=== PATIENT | female | born 1990 ===

== ENCOUNTER 2021-01-07 17:56 | Inpatient (IN) | payer MEDICAID ==
[~2021-01-07] VITALS: Ht 162.6 cm; Wt 94.6 kg
--- NOTE | ~2021-01-07 | OP ---
PATIENT NAME: KATIUSKA SALMERON MEDICAL RECORD: [id number] :91 LOCATION:[id number] ADMISSION DATE:01/07/21 SURGEON: SYLVAIN BLANCO DO DATE OF OPERATION: 01/07/2021 PREOPERATIVE DIAGNOSIS: A 38 weeks Category 2 nonreassuring heart tracing. POSTOPERATIVE DIAGNOSIS: A 38 weeks Category 2 nonreassuring heart tracing. PRIMARY SURGEON: Sylvain Blanco DO ANESTHESIA: Spinal. PROCEDURE: Primary low transverse via Pfannenstiel incision. FINDINGS: Vigorous male infant delivered at 2055, weight 3201 grams, Apgars 9 and 9, loose body cord, clear amniotic fluid. SPECIMENS: Placenta, cord pH, and cord blood. ESTIMATED BLOOD LOSS: 900 cc. IV FLUIDS: Per anesthesia. URINE OUTPUT: 300 cc clear yellow urine. INFECTION PROPHYLAXIS: 2 grams Ancef. Chlorhexidine prep. COMPLICATIONS: None. The patient presented to L and B for leakage, but noted to have late decelerations on the monitor due to recurrent late despite resuscitation, decision made for . Risks and benefits were explained to the patient. The patient expressed understanding and desired to proceed with delivery. The patient was taken to the OR where spinal anesthesia was administered and found to be adequate. She was prepped and draped in normal sterile fashion in dorsal supine position with a leftward tilt. Pfannenstiel skin incision was made with a scalpel and carried down to the underlying layer of fascia with the Bovie. The fascia was incised in the midline and incision extended laterally with Montez scissors. The inferior aspect of the fascial incision was grasped with Kochers and the rectus muscle dissected off sharply. The superior aspect of fascial incision grasped with Kochers and rectus muscles were dissected off sharply. Rectus muscle in the midline bluntly and peritoneum identified and noted to be free of adherent bowel and bladder and entered bluntly. The peritoneum was stretched with gentle traction. Bladder blade placed. Transverse incision was made on the uterus with scalpel and incision extended with upward and downward gentle traction. The infant's head brought to the incision. 's head delivered without difficulty. Loose body cord noted. Clear amniotic fluid on rupture. A vigorous male infant delivered. Body delivered without difficulty. Mouth and nose were suctioned. Cord was clamped and cut. The handed to waiting pediatric nurse. Placenta removed manually. Uterus exteriorized. A moist laparotomy sponge used to assure complete removal of placental membranes. Hysterotomy reapproximated with 0 OPERATIVE REPORT [id number] KATIUSKA SALMERONl in a running fashion with good hemostasis noted. A small bleeding right lateral edge affixed with [id number] stitch with good hemostasis. Posterior cul-de-sac irrigated with saline and suctioned clear of blood clots and fluid. Hysterotomy reexamined and noted to be hemostatic. Uterus replaced into abdominal cavity. Gutters cleaned with moist laparotomy sponge to remove blood clots and fluid. Muscle was closed in a running fashion with 2-0 Monocryl. The muscle was inspected and no active bleeding noted. Fascia closed in running fashion with 0 Vicryl. Subcutaneous layer irrigated and bleeding vessels cauterized with the Bovie, closed with plain gut and skin closed in a subcuticular fashion with 3-0 Monocryl. Steri-Strips were applied and dressing applied. The patient tolerated the procedure well. Lap, instrument, and needle counts were correct times 2. The patient was awakened and taken to recovery room in stable condition. TRANSINT:[id number] Voice Confirmation ID: [id number] DOCUMENT ID: [id number] SYLVAIN BLANCO DO CC: [id number] DICTATION DATE: 01/11/211899 DIRECTOR OF CONVENTION SERVICES: 01/11/212151 DIS IN 01/09/21 [facility] [address] [place] [address]
[2021-01-07 19:17] LABS: BASOPHILS 0.1 % (0-2); EOSINOPHILS 0.7 % (0-7); HEMATOCRIT 36.7 % (36.0-48.0); HEMOGLOBIN 11.9 g/dL (12-16); IMMATURE GRANULOCYTES 0.7 % (0-5); LYMPHOCYTES 16.4 % (15-50); MCH 26.8 pg (26.0-34.0); MCHC 32.4 g/dL (31.0-37.0); MCV 82.7 fL (80.0-100.0); MEAN PLATELET VOLUME 10.8 fL (7.4-10.4); NEUTROPHIL ABS# 7.43 10x3/uL (1.56-6.13); NEUTROPHILS 76.1 % (40-80); RBC 4.44 10x6/uL (4.00-5.40); RDW 14.1 % (11.5-14.5); WBC 9.8 10x3/uL (4.8-10.8)
[2021-01-07 19:27] LABS: PLATELET COUNT 197 10x3/uL (130-400)
[2021-01-07 19:35] LABS: ALBUMIN 2.6 g/dL (3.4-5.0); ALKALINE PHOSPHATASE 153 U/L (30-120); ALT (SGPT) 16 U/L (10-68); BILIRUBIN - TOTAL 0.33 mg/dL (0.2-1.3); CALC OSMOLALITY 270 mosm/kg (275-300); CALCIUM 8.4 mg/dL (8.5-10.1); CARBON DIOXIDE 17.9 mmol/L (21.0-32.0); CHLORIDE - SERUM 105 mmol/L (98-107); CREATININE - SERUM 0.5 mg/dL (0.6-1.3); GLUCOSE 84 mg/dL (74-106); PROTEIN - SERUM 6.4 g/dL (6.4-8.2); SODIUM 137 mmol/L (136-145); UREA NITROGEN 7 mg/dL (7-18); eGFR NON AFRICAN AMERICAN > 90 mL/min (90-120)
--- NOTE | 2021-01-07 22:15 | NUR ---
BABY 2055
[2021-01-07 22:55] VITALS: BP 111/56
[2021-01-07 23:10] VITALS: BP 109/55
[2021-01-07 23:33] VITALS: BP 115/60
[2021-01-07 23:48] VITALS: BP 101/59
[2021-01-08 00:05] VITALS: BP 108/56
[2021-01-08 00:48] VITALS: BP 97/60
--- NOTE | 2021-01-08 04:30 | NUR ---
VSS, AFEBRILE, RESP EVEN AND UNLABORED, PT REPORTS INCREASED ABD PAIN NOW RATES 8 OUT OF 10 ON NUMERIC PAIN SCALE, PRN MED GIVEN, ICE PACK OVERLAY REFRESHED AND TO LOW TRANSVERSE INCISION, CUP OF ICE WATER PROVIDED WELL, BROWER CATHETER EMPTIED AND RESET TO GRAVITY DRAINAGE-TOTAL 500ML SINCE RECOVERY. PERICARE/BROWER CARE COMPLETED, REPOSITIONED PT TO COMFORT, SR UP X2, BED IN LOW POSIION, C/L IN EASY REACH OF PT. WILL MONITOR.
[2021-01-08 04:38] VITALS: BP 100/54
--- NOTE | 2021-01-08 05:40 | NUR ---
OUTSIDE SALES ENGINEER HERE TO DRAW AM ORDERED LABS, UA SENT WITH TECH.
[2021-01-08 06:00] LABS: BASOPHILS 0.1 % (0-2); EOSINOPHILS 0.8 % (0-7); HEMATOCRIT 30.6 % (36.0-48.0); HEMOGLOBIN 9.9 g/dL (12-16); IMMATURE GRANULOCYTES 0.7 % (0-5); LYMPHOCYTE ABS# 1.84 10x3/uL (1.18-3.74); LYMPHOCYTES 19.1 % (15-50); MCH 26.8 pg (26.0-34.0); MCHC 32.4 g/dL (31.0-37.0); MCV 82.7 fL (80.0-100.0); MEAN PLATELET VOLUME 10.4 fL (7.4-10.4); MONOCYTES 7.1 % (2-11); NEUTROPHIL ABS# 6.94 10x3/uL (1.56-6.13); NEUTROPHILS 72.2 % (40-80); RDW 14.2 % (11.5-14.5); WBC 9.6 10x3/uL (4.8-10.8)
[2021-01-08 06:02] LABS: PLATELET COUNT 142 10x3/uL (130-400)
--- NOTE | 2021-01-08 06:25 | NUR ---
DR QUILES PHONED WITH AM H&H RESULTS, ORDERS RECEIVED, NOTED, AND VREIFIED VIA TORB.
[2021-01-08 06:37] LABS: BILIRUBIN NEGATIVE (NEGATIVE); KETONE NEGATIVE (NEGATIVE); NITRITE NEGATIVE (NEGATIVE); UROBILINOGEN NORMAL mg/dL (< 2)
[2021-01-08 08:00] VITALS: BP 146/60
--- NOTE | 2021-01-08 08:00 | NUR ---
PATIENT ASSESSMENT COMPLETED AT BEDSIDE. VSS. PATIENT COMPLAINS OF PAIN 12/24. LR INFUSING IN LEFT ARM PIV. RIGHT ARM PIV SALINED LOCKED. FUNDUS FIRM AND MIDLINE AT UMBILICUS. BLEEDING LIGHT TO MODERATE. SMALL CLOT EXPRESSED. INCISION COVERED WITH DRESSING. CLEAN DRY AND INTACT. SCD IN PLACE. SKIN ASSESSED, WNL. BROWER PRESENT DRAINING CLEAR YELLOW URINE TO GRAVITY. SIDE RAILS UP X 2, BED IN LOW POSITION, CALL LIGHT WITHIN REACH.
--- NOTE | 2021-01-08 11:15 | NUR ---
BROWER REMOVED 1300 ML OF URINE IN BAG. PATIENT TOLERATED WELL.
--- NOTE | 2021-01-08 11:42 | NUR ---
PATIENT AMBULATED TO RESTROOM WITH MINIMAL ASSISTANCE FROM RN. PATIENT UNABLE TO VOID AT THIS TIME. INSTRUCTED TO VOID IN URINE HAT AND INFORM RN. PERICARE PERFORMED. PATIENT SALINED LOCKED. ABDOMINAL BINDER PLACED. PATIENT DENIES NEEDS AT THIS TIME. LINEN CHANGED. SIDE RAILS UP X2, BED IN LOW POSITION, CALL LIGHT WITHIN REACH.
[2021-01-08 11:55] LABS: BASOPHILS 0.1 % (0-2); EOSINOPHILS 0.7 % (0-7); HEMATOCRIT 33.2 % (36.0-48.0); HEMOGLOBIN 10.6 g/dL (12-16); IMMATURE GRANULOCYTES 0.6 % (0-5); LYMPHOCYTE ABS# 1.91 10x3/uL (1.18-3.74); LYMPHOCYTES 20.4 % (15-50); MCH 26.4 pg (26.0-34.0); MCHC 31.9 g/dL (31.0-37.0); MCV 82.6 fL (80.0-100.0); MEAN PLATELET VOLUME 9.8 fL (7.4-10.4); MONOCYTES 7.5 % (2-11); NEUTROPHIL ABS# 6.61 10x3/uL (1.56-6.13); NEUTROPHILS 70.7 % (40-80); PLATELET COUNT 152 10x3/uL (130-400); RBC 4.02 10x6/uL (4.00-5.40); RDW 14.1 % (11.5-14.5); WBC 9.4 10x3/uL (4.8-10.8)
[2021-01-08 13:16] VITALS: BP 92/49
--- NOTE | 2021-01-08 13:18 | NUR ---
RESPRIATORY AT BEDSIDE TO GIVE UPDRAFT SECONDARY TO PATIENT'S HISTORY OF ASTHMA. PATIENT POST BROWER VOID OF 300 ML OF CLEAR URINE NOTED.
[2021-01-08 19:38] VITALS: BP 102/62
--- NOTE | 2021-01-08 19:38 | NUR ---
PM ASSESSMENT COMPLETED, VSS, AFEBRILE, AMBULATORY IN ROOM. C/O PAIN AND PRN MED GIVEN PER PT REQUEST WITH SIP WATER. NAD NOTED. WILL MONITOR.
--- NOTE | 2021-01-08 20:15 | NUR ---
PT RESTING WITH EYES CLOSED, RESP EVEN AND UNLABORED, NAD NOTED. C/L IN EASY REACH. WILL MONITOR.
--- NOTE | 2021-01-08 21:36 | NUR ---
ROUNDS COMPLETED, NAD NOTED. WILL MONITOR.
--- NOTE | 2021-01-08 23:30 | NUR ---
ROUNDS COMPLETED, NAD NOTED. RESP EVEN AND UNLABORED. C/L IN EASY REACH.
--- NOTE | 2021-01-09 00:24 | NUR ---
ROUNDS COMPLETED, VSS, AFEBRILE, PRN PAIN MED GIVEN WELL 1 UNIT RHOGRAM IM RIGHT THIGH BLEED SCREEN NEGATIVE. C/L IN EASY REACH OF PT, CUP OF ICE WATER PROVIDED PER REQUEST.
[2021-01-09 00:30] VITALS: BP 91/57
--- NOTE | 2021-01-09 07:26 | NUR ---
THIS RN TO ROOM FOR PT CHECK. PT LYING IN BED ON LEFT SIDE, ALERTS THIS RN ENTERS ROOM. DENIES PAIN OR ANY NEEDS. INFANT RESTING IN [place] AT BEDSIDE. PT INSTRUCTED SHE MAY CONTINUE TO REST, AND THIS RN WILL RETURN TO COMPLETE FULL SHIFT ASSESSMENT AFTER BREAKFAST. PT VERBALIZES UNDERSTANDING, LIES BACK DOWN ON LEFT SIDE TO REST. SRUx2, CL IN REACH.
--- NOTE | 2021-01-09 08:30 | NUR ---
PT CHECK BY ALEJANDRA FARFAN, REPORTS PT IS AAOx3 AND DENIES NEEDS. SRUx2, CL IN REACH.
[2021-01-09 10:21] VITALS: BP 114/64
--- NOTE | 2021-01-09 10:21 | NUR ---
THIS RN TO ROOM FOR COMPLETE SHIFT ASSESSMENT. PT RATES PAIN 7/10 AT THIS TIME, REQUESTING TO TRY IBUPROFEN FIRST BECAUSE SHE DOESN'T WANT TO TAKE NARCOTICS IF NOT NECESSARY. VSS. SHIFT ASSESSMENT COMPLETE. LT ABD INCISION IS C/D WITH STERISTRIPS INTACT. PT DENIES HEAVY LOCHIA OR CLOTS DURING NIGHT, STATES IT HAS BEEN LIGHT. INSTRUCTED ON S/S TO REPORT. UNDERSTANDING VERBALIZED. PT DENIES NAUSEA, STATES HAS BEEN PASSING GAS. MILD GENERALIZED EDEMA NOTED, NON-PITTING. POC DISCUSSED, PT STATES SHE HOPES TO D/C TO HOME TODAY. WILL ADMIN SCHEDULED MEDS AND IBUPROFEN REQUESTED, SEE EMAR FOR DOC.
--- NOTE | 2021-01-09 10:30 | NUR ---
LEFT WRIST PIV REMOVED WITHOUT INCIDENT PER PT REQUEST AND ORDER FOR D/C TO HOME.
--- NOTE | 2021-01-09 10:34 | NUR ---
GAS X AND MOTRIN ADMIN, PT DENIES BEING A SMOKER OR NEEDING A NICOTINE PATCH. SEE EMAR.
--- NOTE | 2021-01-09 12:05 | NUR ---
THIS RN TO ROOM FOR PT CHECK. PT SITTING UP EATING LUNCH, DENIES NEEDS, STATES SHE IS WAITING TO SEE IF INFANT WILL BE DISCHARGED TO HOME. MOTHER AT BEDSIDE. SRUx2, CL IN REACH.
--- NOTE | 2021-01-09 13:01 | NUR ---
PT RATING PAIN 7/10, REQUESTING PERCOCET. ADMIN ORDERED, SEE EMAR FOR DOC. FRESH ICE WATER GIVEN. PT DRESSED IN OWN CLOTHES, AWAITING DISCHARGE. SRUx2, CL IN REACH.
--- NOTE | 2021-01-09 14:25 | NUR ---
THIS RN TO ROOM FOR PT CHECK, UPDATED WORKING ON DISCHARGE. DENIES NEEDS. SRUx2, CL IN REACH.
[2021-01-09] MEDS ORDERED: IBUPROFEN800 MG PO (15:46)
[2021-01-09] MEDS ORDERED: PERCOCET 5-3251 TAB PO (15:46)
--- NOTE | 2021-01-09 16:00 | NUR ---
D/C TEACHING COMPLETED AND PRESCRIPTION GIVEN PROVIDED BY DR QUILES WITH INSTRUCTIONS ON MEDS. PT VERBALIZES UNDERSTANDING AND DENIES QUESTIONS, SIGNS CHART COPIES. PT COPIES PROVIDED.
--- NOTE | 2021-01-09 16:05 | NUR ---
PT OFF UNIT VIA W/C WITH TO PRIVATE VEHICLE, PT'S MOTHER TO DRIVE HER HOME.
[2021-01-10 07:15] LABS: RAPID PLASMA REAGIN Non Reactive (Non Reactive)
[2021-01-10 10:12] LABS: HEPATITIS C ANTIBODY 3.6 S/CO RAT (0.0-0.9)
== END 2021-01-09 16:05 | disposition home or self-care (01) | DRG 788 ==
LOC: D.LDO 17:56 → D.LD 19:07
PROVIDERS: ADMIT Obstetrics & Gynecology; ATTEND Obstetrics & Gynecology
PROC: 3E033VJ Introduction of Other Hormone into Peripheral Vein, Percutaneous Approach (ICD-10-PCS; 2021-01-07)
PROC: 10D00Z1 Extraction of Products of Conception, Low, Open Approach (ICD-10-PCS; principal; 2021-01-07 20:30)
DX: O36.8330 Maternal care for abnormalities of the fetal heart rate or rhythm, third trimester, not applicable or unspecified (principal); O77.9 Labor and delivery complicated by fetal stress, unspecified; Z3A.38 38 weeks gestation of pregnancy; Z37.0 Single live birth; O26.893 Other specified pregnancy related conditions, third trimester; Z67.91 Unspecified blood type, Rh negative

== ENCOUNTER 2021-01-15 00:32 | Emergency (ER) | payer MEDICAID ==
[~2021-01-15] VITALS: Ht 162.6 cm; Wt 92.7 kg
[~2021-01-15 00:32] MED LIST: IBUPROFEN800 MG PO; PERCOCET 5-3251 TAB PO
[2021-01-15 00:36] VITALS: BP 151/86; Ht 162.6 cm; Wt 92.7 kg
[2021-01-15] MEDS ORDERED: PROAIR HFA8.5 G1 INH (00:37)
== END 2021-01-15 01:04 | disposition home or self-care (01) ==
LOC: D.ER 00:32
DX: O90.89 Other complications of the puerperium, not elsewhere classified (principal); Z48.00 Encounter for change or removal of nonsurgical wound dressing